=== PATIENT | female | born 1975 | race Caucasian/White ===

== ENCOUNTER 2018-09-24 08:20 | Day surgery (SDC) | payer OTHER ==
[~2018-09-24 08:20] MED LIST: Dextrose 5%-Lactated Ringers 1,000 ML IV SCH; Midazolam 1 MG/ML 2 ML SDV ONE; Propofol 200 MG/20 ML SDV ONE; fentaNYL 100 MCG/2 ML SDV ONE
[2018-09-24] MEDS ORDERED: Glycopyrrolate 0.2 MG/ML 2 ML SDV IVPUSH ONE (09:00)
--- NOTE | 2018-09-27 08:16 | OR ---
DATE OF PROCEDURE: 09/24/2018 SURGEON: Basil Sauceda MD PREOPERATIVE DIAGNOSIS: Progressive intolerance to laparoscopic adjustable gastric band. POSTOPERATIVE DIAGNOSES: 1. Marked dilation of esophagus with retained bile and some undigested food above the laparoscopic adjustable gastric band. 2. Linear erosion of the gastric band through the gastric wall. 3. Mild antral gastritis. OPERATIVE PROCEDURE: Esophagogastroduodenoscopy with antral biopsies for CLOtest. ANESTHESIA: IV sedation. INDICATION FOR PROCEDURE: A 43-year-old female presenting with progressive intolerance of laparoscopic adjustable band with quite a bit in the way of heartburn and occasional emesis, despite the band having been deflated. The plan is to proceed with an upper GI endoscopy for diagnostic purposes. Potential risks including bleeding and perforation were discussed, and the patient wishes to proceed. DETAILS OF PROCEDURE: The patient was taken to the operating room and placed in a left lateral decubitus position. IV sedation was administered, after which the upper GI endoscope was passed orally through the length of the esophagus into the stomach with retroflexion view of the fundus and thereafter through the pyloric channel to the junction of the third and fourth portions of the duodenum. Findings included quite marked dilation of the esophagus above the band. The band otherwise appeared to be appropriately placed, and the imprint of the band was wide open, i.e. there was no mechanical obstruction per se. Within the dilated esophagus distally, there was quite a bit of redness consistent with some ongoing esophagitis and pooling of some bile, as well as some scattered undigested food material. This was evacuated, and then moving the scope into the stomach, retroflexion revealed the band to almost be eroding through the gastric wall with the band actually being visible through the remaining small amount of mucosa that had not eroded through to this point. Within the antrum, there was some patchy redness. Pyloric channel and visualized portions of the duodenum were unremarkable. At this point, the biopsies were obtained from the antrum for CLOtest for H. pylori, and the scope was then withdrawn and the procedure was then concluded. Recommendation in this case would be to remove the band, as this appeared to be causing the esophageal dilation and decompensation of the esophageal motility, which is often seen above laparoscopic adjustable gastric bands. Additionally, the patient would appear to be in imminant danger of getting an erosion of full thickness through the band, which would result in an area of gastric perforation. Given this, the next appropriate step would be to remove the band. At this point, the patient does not want to be converted to a gastric bypass. We will send the insurance request for removal of band in the next couple of days. Basil Sauceda MD /[id number]
== END 2018-09-24 11:05 | disposition home or self-care (01) ==
LOC: JP.SDS 08:20
PROVIDERS: ATTEND Surgery
DX: K22.8 Other specified diseases of esophagus (principal); K29.70 Gastritis, unspecified, without bleeding; Z88.0 Allergy status to penicillin
CPT/HCPCS: 43239; 81025; 87081; J2250; J2704; J3010; J3490; J7042

== ENCOUNTER 2018-10-28 07:48 | Inpatient (IN) | payer OTHER ==
[~2018-10-28 07:48] MED LIST changes: +Bupivacaine 0.5%/EPINEPHrine 1:200,000 50 ML MDV ONE; +Dexamethasone 4 MG/ML SDV ONE; -Dextrose 5%-Lactated Ringers 1,000 ML IV SCH; +Glycopyrrolate 0.2 MG/ML 5 ML MDV ONE; +Meropenem 500 MG SDV ONE; -Midazolam 1 MG/ML 2 ML SDV ONE; +Neostigmine Methylsulfate 1 MG/ML 5 ML Syringe ONE; +Ondansetron 4 MG/2 ML SDV ONE; +Rocuronium 50 MG/5 ML Vial ONE; +Succinylcholine 200 MG/10 ML MDV ONE; -fentaNYL 100 MCG/2 ML SDV ONE; +fentaNYL 250 MCG/5 ML SDV ONE
[2018-10-28] MEDS ORDERED: Acetaminophen 500 MG Tab PO ONE (08:10)
[2018-10-28] MEDS ORDERED: Scopolamine 1.5 MG Transdermal Patch TOP ONE (08:20)
[2018-10-28] MEDS ORDERED: Dextrose 5%-Lactated Ringers 1,000 ML IV SCH (08:30)
[2018-10-28] MEDS ORDERED: Ketamine 50 MG in Sodium Chloride 0.9% 49.5 ML IV SCH (09:00)
[2018-10-28] MEDS ORDERED: Lidocaine 2% 100 MG/5 ML Syringe IVPUSH SCH (09:00)
[2018-10-28] MEDS ORDERED: Levofloxacin/Dextrose 5%-Water 500 MG in Premix Bag 1 BAG IV ONE (09:00)
[2018-10-28] MEDS ORDERED: Lidocaine 0.4%/D5W 2 GM/500 ML BAG IV SCH (09:00)
[2018-10-28] MEDS ORDERED: Ketamine 500 MG/5 ML MDV IV SCH (09:00)
[2018-10-28] MEDS ORDERED: Labetalol 20 MG/4 ML Syringe ONE (10:09)
[2018-10-28] MEDS ORDERED: Sugammadex Sodium 200 MG/2 ML VIAL ONE (10:23)
[2018-10-28] MEDS ORDERED: hydrOXYzine HCl 100 MG/2 ML SDV IM PRN (11:57)
[2018-10-28] MEDS ORDERED: HYDROmorphone 0.5 MG/0.5 ML Syringe IVPUSH PRN (11:57)
[2018-10-28] MEDS ORDERED: SCOPOLAMINE PATCH CHECK TOP SCH (11:57)
[2018-10-28] MEDS ORDERED: diphenhydrAMINE 50 MG/ML SDV IVPUSH PRN (11:57)
[2018-10-28] MEDS ORDERED: HYDROmorphone 1 MG/ML Syringe IV PRN (11:57)
[2018-10-28] MEDS ORDERED: Metoclopramide 10 MG/2 ML SDV IVPUSH PRN (11:57)
[2018-10-28] MEDS ORDERED: Ondansetron 4 MG/2 ML SDV IVPUSH PRN (11:57)
[2018-10-28] MEDS ORDERED: Labetalol 20 MG/4 ML Syringe IVPUSH PRN (11:57)
[2018-10-28] MEDS ORDERED: Pantoprazole 40 MG Vial IVPUSH SCH (12:00)
[2018-10-28] MEDS: Dextrose 5%-Lactated Ringers 1,000 ML IV SCH ×2 (12:05→23:18)
[2018-10-28] MEDS: FLUoxetine 20 MG Cap PO SCH (13:22)
[2018-10-28] MEDS: Acetaminophen 325 MG Tab PO SCH ×4 (13:28→23:18)
[2018-10-28] MEDS: Hydrochlorothiazide 25 MG Tab PO SCH (13:29)
[2018-10-28] MEDS ORDERED: MVI, Adult with Vitamin K 10 ML, Thiamine 200 MG, Chromium/Copper/Mang/Selen/Zn 1 ML in... IV SCH ×4 (16:00)
[2018-10-28] MEDS: Heparin Sodium 5,000 Units/ML Vial SUBCUT SCH (16:31)
[2018-10-28] MEDS: Simvastatin 20 MG Tab PO SCH ×2 (17:22→18:27)
[2018-10-28] MEDS ORDERED: Montelukast 10 MG Tab PO SCH (21:00)
[2018-10-29] MEDS: Heparin Sodium 5,000 Units/ML Vial SUBCUT SCH (03:54)
[2018-10-29] MEDS ORDERED: Iopamidol 612 MG/ML 50 ML SDV PO STA (03:56)
[2018-10-29] MEDS: Acetaminophen 325 MG Tab PO SCH ×3 (06:44→12:15)
[2018-10-29] MEDS ORDERED: HYDROmorphone 2 MG Tab PO PRN (07:05)
[2018-10-29] MEDS ORDERED: Amphetamine/Dextroamphetamine Salts 10 MG Tab PO SCH (09:00)
[2018-10-29] MEDS ORDERED: Metoprolol Succinate 25 MG Tab.ER PO SCH (09:00)
--- NOTE | 2018-10-29 09:02 | DISCH ---
ADMISSION DIAGNOSES: Intolerance to laparoscopic gastric band; morbid obesity, BMI 38.5; hyperlipidemia; allergic rhinitis; history of Wade's thyroiditis; attention deficit disorder; depression; anxiety; chronic fatigue; chronic neck pain and tachycardia. DISCHARGE DIAGNOSES: Removal of laparoscopic gastric band system and partial gastrectomy for intolerance to laparoscopic gastric band on de-serialization at the point of removal of band. Date of surgery 10/28/2018. Surgeon, Basil Sauceda MD. HISTORY: The patient, Anny Morales, is a 43-year-old female with intolerance to laparoscopic gastric banding. After preoperative evaluation and discussion of possible risks and possible complications, she wished to have the laparoscopic band removed. HOSPITAL COURSE: Anny had her surgical procedure on 10/28/2018. She had no operative complications. On postoperative day #1, she was able to be discharged to home. She received dietary instruction. Her activity was good. Pain was well managed. She tolerated a full liquid diet well. Vital signs were stable. PHYSICAL EXAMINATION: GENERAL: Anny is a pleasant 43-year-old female. VITAL SIGNS: Height is 5 feet 3 inches. Weight is 217 pounds, BMI 38.5. TPR is 97.3, 77, 18 and blood pressure 115/74. HEENT: Negative. NECK: Supple. HEART: Regular rate and rhythm. LUNGS: Clear. ABDOMEN: Dressing was removed. Incisions look good. Sutures intact. She has had her abdominal binder on. EXTREMITIES: Without peripheral edema. DISPOSITION: Discharged to home. CONDITION: Stable and improving. FOLLOWUP: Followup appointment with Constance Yap PA-C, at [facility] on 11/10/2018 at 12 p.m. DISCHARGE MEDICATIONS: New prescriptions: Dilaudid 2 mg q.6 hours p.r.n. pain #28. She is to resume home medications: 1. Vitamin D3 of 1000 international units daily. 2. Adderall 10 mg daily. 3. Fluoxetine 20 mg oral daily. 4. Flonase 1 spray in each nostril daily. 5. Ibuprofen 200 mg every 6 hours p.r.n. mild pain. 6. Metoprolol-XL 25 mg oral daily. 7. Singulair 10 mg oral daily. 8. Zocor 10 mg oral daily. 9. Hydrochlorothiazide 25 mg oral daily. DISCHARGE INSTRUCTIONS: Diet after discharge: Full liquid diet for 1-week and gradually progress to soft solid. Activity after discharge: No lifting over 10 pounds for 2 weeks. Other activity walk at least 6 times daily inside your home unless you are walking with someone. Driving: Do not drive for 1 week and while on pain medication. Shower/bathing, may shower. No tub bathing or swimming for 6 to 8 weeks until your incisions are healed. Notify provider if any fever, increased pain, swelling, redness, nausea, or vomiting. Keep site clean and dry. Wear abdominal binder for 2 weeks and then as tolerated. SPECIAL INSTRUCTIONS: Use incentive spirometer 10 times every hour while awake for 1-week. If any problems or questions, call the [facility] in [place] between 8 and 4:30 at [phone]. After clinic hours, call [facility] at [phone] and ask for a nurse on second floor.
[2018-10-29] MEDS: Hydrochlorothiazide 25 MG Tab PO SCH (10:04)
[2018-10-29] MEDS: FLUoxetine 20 MG Cap PO SCH (10:05)
[2018-10-29] MEDS ORDERED: Pantoprazole 40 MG Tab.CR PO SCH (12:00)
--- NOTE | 2018-10-29 19:43 | CRLCR ---
PRELIMINARY IMPRESSIONS: 1. No evidence of contrast extravasation is noted on 2 static submitted images. Agree with preliminary report. No abnormality evident. Dictated by: Kameron Jimenez MD @ 11/02/2018 10:42:34 (Electronically Signed)
[2018-10-30] MEDS ORDERED: Cyanocobalamin (Vitamin B12) 1,000 MCG/ML SDV IM ONE (09:00)
--- NOTE | 2018-11-02 12:54 | OR ---
DATE OF PROCEDURE: 10/28/2018 PREOPERATIVE DIAGNOSIS: Intolerance to laparoscopic adjustable gastric band. POSTOPERATIVE DIAGNOSES: 1. Intolerance to laparoscopic adjustable gastric band. 2. Focal deserosalization of stomach, status post removal of laparoscopic adjustable gastric band. OPERATIVE PROCEDURE: Diagnostic laparoscopy with: 1. Removal of laparoscopic adjustable gastric band system (53387). 2. Partial gastrectomy (31438). ANESTHESIA: General. BRANDING MACHINE OPERATOR: Constance Yap PA-C. INDICATION FOR PROCEDURE: This is a 43-year-old status post laparoscopic adjustable gastric band placement with progressive intolerance. The plan is to proceed with removal of the band. At this point, the patient does not want to be converted to another bariatric surgery such as a gastric bypass. Potential risks of the procedure including bleeding, infection, injury to the viscera in the area, and the likelihood of significant weight regained over the ensuing months and years were all gone over, and the patient wishes to proceed. DETAILS OF PROCEDURE: The patient was taken to the operating room and placed in a supine position. After general endotracheal anesthesia was induced, she was converted to a lithotomy position and the abdomen was prepped and draped. At 15 cm inferior and 5 cm on left xiphoid process, a transverse incision was made and the peritoneal cavity entered under direct vision with an Optiview trocar and inflated to 15 mmHg pressure of CO2. Laparoscope was then reinserted. No underlying trocar insertion site injuries were seen. Following this, bilateral transversus abdominis plane blocks were placed and 4 additional trocars were placed across the upper-mid abdomen. The area of the band was then encountered with some minor adhesions between the liver and the banded area of the stomach was taken down with Harmonic Scalpel. The band was then freed up of the fibrous attachments to the extent that it became almost in the enclosed within the enclosed tract, and the band was then divided and extracted from the area around the point of encirclement of the gastric antrum. That area otherwise appeared to be intact. The port tubing was then cut usp through one of the arrows to help confirm that the entire tubing was removed upon removal of the port, and the band was then disconnected and 2 components of the band were then extracted from the abdominal cavity. There was a rim of gastric wall, which was significantly deserosalized and underwent some cautery damage during the course of the takedown of the band and this was excised with 2 firings of the KENDAL purple loads and portion of the stomach, removed from the field. At this point, no further intra-abdominal problems were noted. Hemostasis was confirmed at the staple lines and irrigated with cefoxitin-containing saline solution. The trocars were removed and the peritoneal cavity was deflated. The incision closed with some 4-0 Vicryl skin stitch. Attention was taken to the port removal. The incision over the port was then made and carried down through the skin and subcutaneous tissue and using electrocautery dissection, a section of the port was eventually freed up of its attachments and this along with the attached port tubing was removed with the end of the tubing confirming to be where it had been divided intra-abdominally. This incision was closed with 3-0 and 4-0 Vicryl stitch deep and a 4-0 Vicryl for skin stitch. Dressing was applied. The patient was taken to the recovery room in satisfactory condition. Physician drafter assistant, Constance Yap, played an essential role in assisting in this case, helping to position the patient, retract structures as needed, as well as suturing and cutting sutures when indicated. Her presence improved patient safety and decreased operative time. Basil Sauceda MD /[id number] CC: Maia Nolen PA-C [place] [id number]
== END 2018-10-29 12:50 | disposition home or self-care (01) | DRG 358 ==
LOC: JP.SDS 07:48 → JP.MS 07:48 → EDSTATUS 10:25
PROVIDERS: ADMIT Surgery; ATTEND Surgery
PROC: 0DP64CZ Removal of Extraluminal Device from Stomach, Percutaneous Endoscopic Approach (ICD-10-PCS; principal; 2018-10-28)
PROC: 0WPG03Z Removal of Infusion Device from Peritoneal Cavity, Open Approach (ICD-10-PCS; 2018-10-28)
PROC: 0DB64ZZ Excision of Stomach, Percutaneous Endoscopic Approach (ICD-10-PCS; 2018-10-28)
DX: K95.09 Other complications of gastric band procedure (principal); Y83.8 Other surgical procedures as the cause of abnormal reaction of the patient, or of later complication, without mention of misadventure at the time of the procedure; K31.89 Other diseases of stomach and duodenum; Z98.84 Bariatric surgery status; E78.5 Hyperlipidemia, unspecified; Z87.891 Personal history of nicotine dependence; J30.9 Allergic rhinitis, unspecified; F41.9 Anxiety disorder, unspecified; R53.82 Chronic fatigue, unspecified; M54.2 Cervicalgia; G89.29 Other chronic pain; F32.9 Major depressive disorder, single episode, unspecified; E55.9 Vitamin D deficiency, unspecified; Z87.442 Personal history of urinary calculi; N39.3 Stress incontinence (female) (male); Z90.49 Acquired absence of other specified parts of digestive tract; E66.01 Morbid (severe) obesity due to excess calories; Z68.38 Body mass index [BMI] 38.0-38.9, adult; F98.8 Other specified behavioral and emotional disorders with onset usually occurring in childhood and adolescence; R00.0 Tachycardia, unspecified; Z87.898 Personal history of other specified conditions
CPT/HCPCS: 36415; 74240; 80048; 81025; 83735; 84100; 85027; 86850; 86900; 86901; 88300; 88305; A9270-GY; C9113; J0171; J0330; J1100; J1170; J1644; J1956; J2001; J2185; J2405; J2704; J2710; J2765; J2795; J3010; J3410; J3411; J3490; J7042; J7050; Q9967